=== PATIENT | female | born 1965 | race Two or more races ===

== ENCOUNTER 2022-09-10 15:16 | Emergency (ER) | payer BC, MEDICAID ==
[~2022-09-10] VITALS: Ht 167.6 cm; Wt 72.6 kg
[2022-09-10 16:17] LABS: HEMATOCRIT 39.7 % (31.2-41.9); MEAN CORPUSCULAR HEMOGLOBIN 28.6 uug (24.7-32.8); MEAN CORPUSCULAR VOLUME 84.8 fL (75.5-95.3); PLATELET COUNT (AUTO) 247 K/uL (179-408)
[2022-09-10 16:27] LABS: CREATININE 0.7 mg/dL (0.6-1.3)
[2022-09-10] MEDS ORDERED: NAPR500T6 PO (17:11)
[2022-09-10] MEDS ORDERED: DICY10CA13 PO (17:11)
--- NOTE | 2022-09-10 17:30 | NUR ---
Patient discharged to home in stable condition. Written and verbal after care instructions given. Patient verbalizes understanding of instructions. Stressed follow up or return to ER for worsening s/s.
== END 2022-09-10 17:31 | disposition home or self-care (01) ==
LOC: ER 15:16
DX: B34.9 Viral infection, unspecified (principal); Z20.822 Contact with and (suspected) exposure to COVID-19
CPT/HCPCS: 36415; 71045; 85025; 87400; A4663